=== PATIENT | female | born 1945 | race Caucasian/White ===

== ENCOUNTER → 2022-02-25 13:51 | Outpatient (CLI) | payer MEDICARE, SELFPAY ==
--- NOTE | 2022-02-25 13:54 | DI.RAD.S_ITS ---
PROCEDURE: XR FINGER LT MIN 2V INDICATIONS: painful thumb TECHNIQUE: AP hand, 2 views of the 1st finger(s) acquired. COMPARISON: None. FINDINGS: Bones: No fractures or dislocations. Moderate osteoarthritic changes throughout left thumb are seen more prominent at 1st CMC joint. No suspicious bony lesions. Soft tissues: No suspicious soft tissue calcifications. IMPRESSION: Osteoarthritic changes throughout left thumb more prominent at 1st CMC joint. No fracture or dislocation. No gross soft tissue abnormality. Dictated by: Claude Alex M.D. on 02/25/2022 at 15:31 Approved by: Claude Alex M.D. on 02/25/2022 at 15:34
== END ==
PROVIDERS: Referring Provider Nurse Practitioner Family; Visit Provider Nurse Practitioner Family
DX: M79.645 Pain in left finger(s) (principal)
CPT/HCPCS: 73140

== ENCOUNTER 2023-07-30 06:57 | Emergency (ER) | payer MEDICARE, SELFPAY ==
[2023-07-30] VITALS (16 sets, daily range): BP systolic 145–185; BP diastolic 48–94; PULSE 67–89; RESP 16–18; TEMP 36.2; O2SAT 95–100; BMI 20.9
--- NOTE | 2023-07-30 07:08 | ED.DIZZY ---
HPI - Dizziness General Chief Complaint: Dizziness Stated Complaint: Dizzy Time Seen by Provider: 07/30/23 07:06 Source: patient and EMS Mode of arrival: EMS Limitations: no limitations History of Present Illness HPI Narrative: 78-year-old female no reported medical issues who presents with complaint of dizziness/vertigo. Patient states she would a similar episode about a year ago after traveling to [place] from [place]. She states she did pretty vigorous hike and then the following evening woke up dizzy she states she did not have the nausea vomiting but had sensation of moving her off balance. She states that ultimately resolved. She states that is was several years ago. This morning she states that she went for a hike yesterday and [place]. She woke up this morning at about 4:00 a.m. she states she rolled over in bed and then felt like the room started spinning. Patient states she is had nausea and vomiting. She denies headache, she denies vision changes, she denies chest pain or shortness of breath, no numbness, tingling or weakness. Patient states she is nauseated she has vomited. She denies any diarrhea constipation, no bowel or bladder incontinence. She states she has not been able to walk or ambulate. Patient states no daily medications. She is had an appendectomy in the past. No known drug allergies. No tobacco, occasional alcohol, no recreational drugs. She is currently visiting the area and lives in [place]. Related Data Previous Rx's Medication Instructions Recorded diclofenac sodium 1 % topical gel 2 g topical QID #100 grams 02/23/22 (Voltaren Arthritis Pain) meclizine 25 mg tablet 25 mg PO QID #20 tabs 07/30/23 ondansetron 4 mg disintegrating 4 mg PO Q6H PRN nausea and 07/30/23 tablet vomiting #10 tabs Allergies Allergy/AdvReac Type Severity Reaction Status Date / Time No Known Drug Allergies Allergy Unverified 02/23/22 12:12 Review of Systems Review of Systems ROS Unobtainable: All systems reviewed & are unremarkable except as noted in HPI and below Patient History Social History Smoking Status: Never smoker Smoking Status: Never smoker alcohol intake frequency: holidays/special occasions only Substance Use Type: does not use Exam Narrative Exam Narrative: GEN: well nourished, well appearing female, alert and oriented x 3, patient appears to be in mild distress. HEENT: Atraumatic, pupils are equal round reactive to light, extraocular movements are intact, nares are clear, TMs are clear with no fluid, there is no conjunctival pallor. Throat is clear without any exudates, erythema, tonsillar enlargement or uvular deviation HEART: Regular rate and rhythm without murmur, clicks, rubs. No carotid bruits, pulses are equal in upper and lower extremities LUNGS:Lungs clear to auscultation, no wheezes, rales, crackles, chest moves symmetrically ABD:bowel sounds normal, soft, non-tender, no guarding, rebound, rigidity, no masses noted, no hepatosplenomegaly :No CVA tenderness MSCL: Non-tender, no muscle atrophy, muscles strength 5/5 upper and lower extremities, full range of motion NEURO:CN 2-12 intact, sensation normal, reflexes 2/4 upper and lower extremities. finger nose finger test normal, heel whitney test normal SKIN: No rash, erythema or other skin changes Initial Vital Signs Initial Vital Signs: Vital Signs Temperature 97.1 F L 07/30/23 06:58 Pulse Rate 89 07/30/23 06:58 Respiratory Rate 16 07/30/23 06:58 Blood Pressure 172/89 H 07/30/23 06:58 Pulse Oximetry 99 07/30/23 06:58 Oxygen Delivery Method Room Air 07/30/23 06:58 Course Orders Ordered: ED Orders 07/30/23 07:26 EKG-12 Lead Stat 07/30/23 07:27 CT head/brain wo con Stat 07/30/23 07:48 Complete Blood Count AUTO DIFF Stat Comprehensive Metabolic Panel Stat 07/30/23 09:39 Urine Culture Stat Urine Microscopic Stat Discontinued Medications Sodium Chloride (Normal Saline 0.9%) 1,000 mls @ 1,000 mls/hr IV BOLUS ONE Stop: 07/30/23 08:25 Last Infusion: 07/30/23 08:45 Dose: Infused Documented By: Admin: 07/30/23 07:46 Dose: 1,000 mls/hr Documented By: CELINA Meclizine HCl (Meclizine Hcl 12.5 Mg Tablet) 25 mg PO NOW ONE Stop: 07/30/23 07:27 Last Admin: 07/30/23 07:47 Dose: 25 mg Documented By: CELINA Ondansetron HCl (Ondansetron 4 Mg/2 Ml Inj) 4 mg IV NOW ONE Stop: 07/30/23 07:27 Last Admin: 07/30/23 07:45 Dose: 4 mg Documented By: CELINA Vital Signs Vital signs: Vital Signs - 8 hr 07/30/23 06:58 07/30/23 07:30 07/30/23 07:35 Temperature 97.1 F L Pulse Rate 89 78 77 Respiratory Rate 16 18 Blood Pressure 172/89 H 175/90 H Pulse Oximetry 99 97 100 Oxygen Delivery Method Room Air Room Air 07/30/23 08:00 07/30/23 08:09 07/30/23 08:09 Temperature Pulse Rate 69 70 Respiratory Rate Blood Pressure 177/94 H Pulse Oximetry 100 99 Oxygen Delivery Method 07/30/23 08:11 07/30/23 08:11 07/30/23 08:15 Temperature Pulse Rate 71 67 Respiratory Rate Blood Pressure 185/86 H Pulse Oximetry 99 98 Oxygen Delivery Method 07/30/23 08:15 07/30/23 08:30 07/30/23 09:00 Temperature Pulse Rate 72 75 Respiratory Rate Blood Pressure 158/82 H Pulse Oximetry 100 95 Oxygen Delivery Method 07/30/23 09:02 07/30/23 09:36 07/30/23 09:37 Temperature Pulse Rate 76 72 Respiratory Rate 18 Blood Pressure 152/48 H 179/88 H Pulse Oximetry 98 98 Oxygen Delivery Method Room Air 07/30/23 09:37 07/30/23 09:45 07/30/23 09:45 Temperature Pulse Rate 75 72 Respiratory Rate Blood Pressure 145/77 H Pulse Oximetry 98 98 Oxygen Delivery Method 07/30/23 10:00 07/30/23 10:00 07/30/23 10:15 Temperature Pulse Rate 71 78 Respiratory Rate Blood Pressure 152/81 H Pulse Oximetry 97 100 Oxygen Delivery Method 07/30/23 10:15 07/30/23 10:25 07/30/23 10:25 Temperature Pulse Rate 78 Respiratory Rate Blood Pressure 145/81 H 151/83 H Pulse Oximetry 95 Oxygen Delivery Method MDM - Dizziness Lab Data 07/30/23 07:48 07/30/23 07:48 Labs: Lab Results 07/30/23 07/30/23 Range/Units 07:48 09:39 WBC 4.5 (4.5-11.0) X10^3/uL RBC 4.88 (4.0-5.2) X10^6/uL Hgb 12.9 (12.0-16.0) g/dL Hct 38.9 (36-46) % MCV 79.7 L (80-100) fL MCH 26.4 (26-34) PG MCHC 33.2 (30-36) % RDW 15.6 H (11.6-14.8) % Plt Count 298 (150-400) X10^3/uL Neut % (Auto) 74.8 (50-75) % Lymph % (Auto) 19.4 L (25-40) % [place] % (Auto) 4.3 (3-14) % Eos % (Auto) 0.7 L (2-4) % Baso % (Auto) 0.8 (0-2) % Neut # (Auto) 3400 (7769-3334) /uL Lymph # (Auto) 900 L (4652-2523) /uL [place] # (Auto) 200 (0-900) /uL Eos # (Auto) 0 (0-450) /uL Baso # (Auto) 0 (0-100) /uL Sodium 137 (137-145) mmol/L Potassium 3.6 (3.4-5.1) mmol/L Chloride 103 (98-107) mmol/L Carbon Dioxide 26 (22-32) mmol/L BUN 13 (7-17) mg/dL Creatinine 0.67 (0.52-1.04) mg/dL Estimated GFR > 60 (>60) mL/min BUN/Creatinine Ratio 19.4 (6-22) Glucose 133 H (80-110) mg/dL Calcium 9.7 (8.4-10.2) mg/dL Total Bilirubin 0.6 (0.2-1.3) mg/dL AST 29 (14-36) IU/L ALT 20 (<35) IU/L Alkaline Phosphatase 62 (38-126) U/L Total Protein 7.4 (6.3-8.2) g/dL Albumin 4.5 (3.5-5.0) g/dL Globulin 2.9 (1.7-4.1) g/dL Albumin/Globulin Ratio 1.6 (1.0-2.8) Urine RBC None seen (0-5/HPF) Urine WBC 5-10/hpf H (0-5/HPF) Ur Squamous Epith Cells 1-5 /hpf (0-5/HPF) Amorphous Sediment 1+ Urine Bacteria Few (2-10) H (None) Ur Culture Indicated? Specimen cultured Urine Dip Bedside Urine Glucose Negative Bedside Urine Bilirubin - Negative Bedside Urine Ketone - Negative Urine Specific [place] 1.010 Bedside Urine Occult Blood - Negative Bedside Urine pH 7.5 Bedside Urine Protein - Negative Bedside Urine Urobilinogen - Negative Bedside Urine Nitrite - Negative Bedside Urine Leukocytes ++ [address] scan - head: Radiologist's Impression: Close Head CT (Signed) Quentin Barnes - 07/30/23 [place] [address] CT Scan Report Signed Patient: Sheri Becker MR#: [id number] : 1945 Acct:[id number] Age/Sex: 78 / F Date of Service: 07/30/23 Loc: ED Accession Number: [id number] Procedure: CT head/brain wo con Ordering Provider: Denise Quinteros D.O. PROCEDURE: CT HEAD/BRAIN WO CON INDICATIONS: vertigo TECHNIQUE: Noncontrast 4.5 mm thick angled axial sections acquired from the foramen magnum to the vertex, with coronal and sagittal reformats. For radiation dose reduction, the following was used: automated exposure control, adjustment of mA and/or kV according to patient size. COMPARISON: None. FINDINGS: Image quality: Excellent. CSF spaces: Basal cisterns are patent. No extra-axial fluid collections. Ventricles are normal in size and shape. Brain: No midline shift. No intracranial masses or hemorrhage. Ferrell-white matter interface is normal. Skull and face: Calvarium and visualized facial bones are intact, without suspicious lesions. Sinuses: Visualized sinuses and mastoids are clear. IMPRESSION: No acute intracranial pathology. Dictated by: Quentin Barnes M.D. on 07/30/2023 at 8:36 Approved by: Quentin Barnes M.D. on 07/30/2023 at 8:40 ECG Data Attestation: I personally reviewed and interpreted this ECG as follows: Prior ECG tracings: not available for review Interpretation: Sinus rhythm rate of 71 CO 148, QRS 80, QTC 484. No acute ST elevation or depression. No priors. MDM Narrative Medical decision making narrative: 78-year-old female with recurrent episode of dizziness no other acute neurologic changes are appreciated on examination or by history. Patient has had 2 episodes total she is quite nauseated. Workup shows no mass, bleed or acute change on head CT. Did discuss with family this does not totally rule out stroke but she does not have any other acute neurologic changes that make me suspicious at this time. Patient's CBC, CMP shows no major electrolyte changes glucose of 133 normal LFTs. Urine shows 5-10 white cells, 1-5 squamous epithelial few bacteria, possible infection but patient does not have any UTI symptoms. Patient would prefer to wait for culture rather than start oral antibiotic which I think is appropriate. She does feel improved she still has some symptoms was able to ambulate to the bathroom after receiving fluids, Zofran and meclizine. Patient feels comfortable returning home. Discussed return precautions kind of sinus symptoms to watch for. She is supposed to travel back to [place] tomorrow and then [facility] the following day discussed to proceed with caution with travel if she is still symptomatic. Reviewed all questions with patient and family, discussed return precautions. Discharge Plan Departure Patient Disposition: Home Clinical Impression: Vertigo Instructions: DI for Vertigo, How to Perform Tony Maneuver Activity Restrictions/Additional Instructions: Please follow up for recheck if your symptoms are persistent. It may be helpful to follow up with primary care they can refer for physical therapy if persistent symptoms. Also following with ENT is sometimes helpful for some additional testing. You may take Zofran 1 tablet every 6 hours as needed for nausea and vomiting. Take meclizine 1 tablet every 6-8 hours as needed for vertigo or dizziness. Prescription sent to [email or web address] in [place]. Please return for worsening symptoms, inability to safely ambulate, fevers, severe headaches, sudden vision changes, facial droop, difficulty with speech, numbness tingling or weakness, difficulty with movement, passing out, persistent vomiting or other new or concerning changes. Prescriptions: New ondansetron 4 mg tablet,disintegrating 4 mg PO Q6H PRN (Reason: nausea and vomiting) Qty: 10 0RF meclizine 25 mg tablet 25 mg PO QID Qty: 20 0RF No Action diclofenac sodium [Voltaren Arthritis Pain] 1 % gel 2 g topical QID Qty: 100 0RF Rx Instructions: apply to single elbow, wrist or hand; for hand includes palm/fingers/back of hand Referrals: Kodi Romero MD [Physician] - Miscellaneous,MD Lele [Primary Care Provider] - Stand Alone Forms: Patient Portal/API
--- NOTE | 2023-07-30 07:27 | DI.CT.S_ITS ---
PROCEDURE: CT HEAD/BRAIN WO CON INDICATIONS: vertigo TECHNIQUE: Noncontrast 4.5 mm thick angled axial sections acquired from the foramen magnum to the vertex, with coronal and sagittal reformats. For radiation dose reduction, the following was used: automated exposure control, adjustment of mA and/or kV according to patient size. COMPARISON: None. FINDINGS: Image quality: Excellent. CSF spaces: Basal cisterns are patent. No extra-axial fluid collections. Ventricles are normal in size and shape. Brain: No midline shift. No intracranial masses or hemorrhage. Ferrell-white matter interface is normal. Skull and face: Calvarium and visualized facial bones are intact, without suspicious lesions. Sinuses: Visualized sinuses and mastoids are clear. IMPRESSION: No acute intracranial pathology. Dictated by: Quentin Barnes M.D. on 07/30/2023 at 8:36 Approved by: Quentin Barnes M.D. on 07/30/2023 at 8:40
[2023-07-30] MEDS: ONDANSETRON 4 MG/2 ML INJ IV (07:45)
[2023-07-30] MEDS: SODIUM CHLORIDE 0.9% 1,000 ML 1000 ML IV (07:46)
[2023-07-30] MEDS: MECLIZINE HCL 12.5 MG TABLET 25 MG PO (07:47)
[2023-07-30 07:58] LABS: Add Manual Diff / Slide Review NO; Basophils Absolute Auto 0 /uL (0-100); Basophils Percent Auto 0.8 % (0-2); Eosinophils Absolute Auto 0 /uL (0-450); Eosinophils Percent Auto 0.7 % (2-4); Hematocrit 38.9 % (36-46); Hemoglobin 12.9 g/dL (12.0-16.0); Lymphocytes Absolute Auto 900 /uL (1100-4500); Lymphocytes Percent Auto 19.4 % (25-40); Mean Corpuscular HGB Conc 33.2 % (30-36); Mean Corpuscular Hemoglobin 26.4 PG (26-34); Mean Corpuscular Volume 79.7 fL (80-100); Monocytes Absolute Auto 200 /uL (0-900); Monocytes Percent Auto 4.3 % (3-14); Neutrophils Absolute Auto 3400 /uL (1500-7000); Neutrophils Percent Auto 74.8 % (50-75); Platelet Count 298 X10^3/uL (150-400); Red Blood Cell Count 4.88 X10^6/uL (4.0-5.2); Red Cell Distribution Width 15.6 % (11.6-14.8); White Blood Cell Count 4.5 X10^3/uL (4.5-11.0)
[2023-07-30 08:09] LABS: Alanine Aminotransferase 20 IU/L (<35); Albumin 4.5 g/dL (3.5-5.0); Albumin Globulin Ratio 1.6 (1.0-2.8); Alkaline Phosphatase 62 U/L (38-126); Aspartate Aminotransferase 29 IU/L (14-36); BUN Creatinine Ratio 19.4 (6-22); Bilirubin Total 0.6 mg/dL (0.2-1.3); Blood Urea Nitrogen 13 mg/dL (7-17); Calcium 9.7 mg/dL (8.4-10.2); Carbon Dioxide 26 mmol/L (22-32); Chloride 103 mmol/L (98-107); Estimated Glomerular Filt Rate > 60 mL/min (>60); Globulin 2.9 g/dL (1.7-4.1); Glucose 133 mg/dL (80-110); HEMOLYSIS < 15 (0-50); Potassium 3.6 mmol/L (3.4-5.1); Sodium 137 mmol/L (137-145); Total Protein 7.4 g/dL (6.3-8.2)
[2023-07-30 09:58] LABS: Amorphous Sediment Urine 1+; Bacteria Urine Few (2-10); Culture Indicated Urine Specimen Cultured; RBC Urine None Seen (0-5/HPF); Squamous Epithelial Cell Urine 1-5 /HPF (0-5/HPF); WBC Urine 5-10/HPF (0-5/HPF)
== END 2023-07-30 10:38 | disposition home or self-care (01) ==
PROVIDERS: Emergency Provider Emergency Medicine
DX: R42 Dizziness and giddiness (principal)
CPT/HCPCS: 70450; 80053; 81003; 81015; 85025; 87086; 87147; 93005; 96361; 96374; 99284; J2405